=== PATIENT | male | born 1950 | race Caucasian/White ===

== ENCOUNTER 2020-10-03 12:04 | Day surgery (SDC) | payer MEDICARE ==
[~2020-10-03] VITALS: Ht 175.3 cm; Wt 83.6 kg
[~2020-10-03 12:04] MED LIST: ASPI81CH PO; DHEA PO; KRILL OIL 1,001 EACH PO; LOSA50 PO; MOBIC15 MG PO; Norco 5-325 Ta1 EACH PO; VITAMIN D325 MC3 PO
--- NOTE | 2020-10-03 13:40 | NUR ---
10/03/20 1340 Loan Anderson PT REQUESTING NO SEDATION. VSS THROUGHOUT PROCEDURE, PT TOLERATED WELL. NO SEDATION USED.
== END 2020-10-03 14:04 | disposition home or self-care (01) ==
LOC: ORSCSDS 12:04
PROVIDERS: Internal Medicine Gastroenterology
PROC: 0DBN8ZX Excision of Sigmoid Colon, Via Natural or Artificial Opening Endoscopic, Diagnostic (ICD-10-PCS; principal; 2020-10-03 13:45)
DX: Z12.11 Encounter for screening for malignant neoplasm of colon (principal); D12.5 Benign neoplasm of sigmoid colon; K57.30 Diverticulosis of large intestine without perforation or abscess without bleeding; K64.8 Other hemorrhoids; G47.33 Obstructive sleep apnea (adult) (pediatric); Z86.718 Personal history of other venous thrombosis and embolism; Z79.899 Other long term (current) drug therapy
CPT/HCPCS: 88305; J2704; J7120